=== PATIENT | female | born 1975 | race Caucasian/White ===

== ENCOUNTER 2021-06-23 15:21 | Outpatient (CLI) | payer MEDICAID ==
--- NOTE | 2021-06-23 19:00 | Ultrasound Report ---
PROCEDURE: Pelvic w/Transvaginal INDICATIONS: FAM HIST OF UTERINE CA TECHNIQUE: Real-time scanning was performed of the pelvic organs, with image documentation. Additional endovagi nal scanning was necessary due to incomplete visualization of the adnexal and endometrial structures by transabdominal scanning. COMPARISON: None. FINDINGS: UTERUS: Anteverted, coarsened echotexture, and measures 8.9 x 5.1 x 6 cm. Fibroids: Right posterior; intramural: 2.1 x 1.6 x 2.1 cm Left anterior; intramural: 2.8 x 2.7 x 2.9 cm Right posterior; intramural: 2.1 x 1.6 x 1.9 cm The endometrial complex measures 14.6 mm. RIGHT OVARY: 7.3 x 5.2 x 5.6 cm. Volume: 109.7 mL. Hypoechoic lesion within the right ovary, measurin g up to 5.6 cm, most consistent with a cyst. Color-flow projects over the ovarian tissue. LEFT OVARY: 12.3 x 7.1 x 8.9 cm. Volume: 407.4 mL. Color-flow projects over the ovarian tissue. Multi cystic change with largest cyst measuring up to 7.4 cm. Some cysts demonstrate internal echoes, comp atible with hemorrhagic change. Greater than 12 follicles. OTHER: None. IMPRESSION: 1.Multicystic change of the left ovary with greater than tall follicles as detailed above. 2.Myomatous change of the uterus. Reviewed by: Baltazar Walls MD on 06/23/2021 6:59 PM PST Approved by: Baltazar Walls MD on 06/23/2021 6:59 PM PST Station ID: [id number]
== END 2021-06-23 15:22 | disposition home or self-care (01) ==
LOC: DI 15:21
PROVIDERS: ATTEND Family Medicine
DX: N83.202 Unspecified ovarian cyst, left side (principal); D25.1 Intramural leiomyoma of uterus

== ENCOUNTER 2023-07-03 09:07 | Outpatient (CLI) | payer MEDICAID ==
--- NOTE | 2023-07-03 10:39 | XRAY Report ---
PROCEDURE: Chest 2V INDICATIONS: LEFT RENAL MASS PROCEDURE TECHNIQUE: 2 views of the chest were acquired. COMPARISON: None. FINDINGS: Surgical changes and devices: None. Lungs and pleura: No pleural effusions or pneumothorax. Left basal opacity. Mediastinum: Mediastinal contours appear normal. Heart size is normal. Bones and chest wall: No suspicious bony lesions. Overlying soft tissues appear unremarkable. IMPRESSION: Left basilar opacity, may represent atelectasis or consolidation. Recommend follow-up radiograph to [facility]. Reviewed by: Benito Feldman MD on 07/03/2023 10:38 AM [facility] Approved by: Benito Feldman MD on 07/03/2023 10:38 AM [facility] Station ID: [id number]
== END 2023-07-03 09:08 | disposition home or self-care (01) ==
LOC: DI 09:07
PROVIDERS: ATTEND Physician Assistant Medical
DX: N28.89 Other specified disorders of kidney and ureter (principal); R91.8 Other nonspecific abnormal finding of lung field